=== PATIENT | male | born 1975 | race Hispanic/Latino ===

== ENCOUNTER → 2022-11-02 | Day surgery (SDC) | payer OTHER ==
[~2022-11-02] MED LIST: ACETAMINOPHEN 1000 MG/100 ML 100 ML IV ONE; DEXAMETHASONE SOD PHOS INJ 4 MG/ML SDV ONE; FENTANYL CITRATE/PF 100MCG/2 ML INJ ONE; GEMFIBROZIL600 MG PO; HYDROCODONE/APAP 7.5MG-325MG 1 EA TAB ONE; KETOROLAC TROMETHAMINE 30 MG/ML VIAL ONE; LIDOCAINE HCL 2% LOCAL INJ 5 ML SDV VIAL INJ ONE; LISINOPRIL5 MG PO; ONDANSETRON HCL INJ 2MG/ML 2ML 2 MG/ML VIAL ONE; POTASSIUM CITR15 MEQ PO; POVIDONE IODINE 0.05% 0.05 % ML PO ONE; PROPOFOL IV EMULSION 10 MG/ML 20 ML VIAL ONE; SEVOFLURANE INHAL SOLN 250 ML PEN BTL ONE; VITAMIN D250 MCG
[2022-11-02] MEDS: FENTANYL CITRATE/PF 100MCG/2 ML INJ ONE ×4 (08:13→08:28)
[2022-11-02 09:05] VITALS: BP 143/95; PULSE 73; RESP 16; O2SAT 99
== END | disposition home or self-care (01) ==
LOC: OR 08:05
PROVIDERS: ATTEND Specialist
DX: S83.242A Other tear of medial meniscus, current injury, left knee, initial encounter (principal); I10 Essential (primary) hypertension; E78.5 Hyperlipidemia, unspecified; N20.0 Calculus of kidney; X58.XXXA Exposure to other specified factors, initial encounter; Z01.810 Encounter for preprocedural cardiovascular examination; Z79.899 Other long term (current) drug therapy
CPT/HCPCS: 29881; 93005; J0131; J0690; J1100; J1885; J2001; J2405; J2704; J3010